=== PATIENT | male | born 1995 | race Caucasian/White ===

== ENCOUNTER 2024-08-06 12:37 | Emergency (ER) | payer SELFPAY ==
[2024-08-06 13:05] VITALS: BP 127/85; PULSE 106; RESP 17; TEMP 36.7; O2SAT 97; BMI 24.0
--- NOTE | 2024-08-06 13:14 | PD.EDRECHK ---
ED Recheck Abnl Lab Rx-RME/HPI General Chief Complaint: Recheck/Abnormal Lab/Rx Stated Complaint: RUNNING OUT OF PSYCH MEDS Time Seen by Provider: 08/06/24 12:53 Arrival date/time: 08/06/24 12:37 RME / HPI RME / HPI narrative: 28-year-old male patient who just moved to [place], came in for evaluation regarding asking refill of psych medication. Patient told me that he already have an appointment with psychiatrist middle of August. Is getting so low with all his psych medication. Currently denies any complaints Related Data Previous Rx's ?Medication ?Instructions ?Recorded atomoxetine 80 mg capsule 80 mg PO QDAY #45 caps 08/06/24 buspirone 15 mg tablet 15 mg PO BID #90 tabs 08/06/24 oxcarbazepine 300 mg tablet 300 mg PO BID #90 tabs 08/06/24 quetiapine 50 mg tablet,extended 50 mg PO QPM #45 tabs 08/06/24 release 24 hr (Seroquel XR) Allergies Allergy/AdvReac Type Severity Reaction Status Date / Time No Known Allergies Allergy Verified 08/06/24 12:44 Review of Systems Review of Systems Narrative Review of Systems: Review of system reviewed and within normal limits except mentioned in HPI ED Exam Narrative Physical exam: VITAL SIGNS: Reviewed. GENERAL APPEARANCE: Alert and interactive, follows commands, no acute distress, HEAD AND FACE: Non-traumatic. ENT: PERRL, pink conjunctivitis, eyelid no trauma, Mucous membrane moist. NECK: Supple, nontender, no nuchal rigidity. CHEST: No tenderness, no crepitus, no paradoxical movement, no retractions. LUNGS: Clear, well ventilated, symmetric, no rales, no wheezing, no ronchi, no stridor, good breath sounds bilaterally. HEART: Regular rate, regular rhythm, no murmur, no gallops. ABDOMEN: Soft, positive bowel sounds, nondistended, no guarding, nontender, no rebound, no masses, RECTAL: Deferred. GENITAL: Deferred. NEUROLOGICAL: Gross motor function intact sensory function intact, Appropriate for age. MUSCULOSKELETAL: low back nontender, full range of motion. EXTREMITIES: Nontender, full range of motion. SKIN: Color pink, dry, no rash, no lacerations, no abrasions, no contusions. LYMPHATICS: Deferred. Course Quality Measures none Vital Signs Vital signs: Vital Signs Temperature 98.1 F 08/06/24 13:05 Pulse Rate 106 H 08/06/24 13:05 Respiratory Rate 17 08/06/24 13:05 Blood Pressure 127/85 H 08/06/24 13:05 Pulse Oximetry (%) 97 08/06/24 13:05 Oxygen Delivery Method Room Air 08/06/24 13:05 Recheck / Abnormal Lab / Rx MDM Narrative MDM Narrative:: I gave refill of his medications since patient is new to this place and still awaiting to be seen by psychiatrist next month. Patient data External records reviewed:: None Clinical information provided by:: patient and family Social determinants that could affect healthcare access:: none Patient has the following chronic illnesses:: Mental disorder, history of seizure disorder How is presenting disease/condition affected by chronic disease/condition?: uneffected by Evaluation data The following diagnostics were reviewed and interpreted by me:: other (specify) (None) Lab and/or radiology exams considered but not ordered:: None Interpretation Summary: None Medications / Prescriptions Medications or Prescriptions considered but not ordered:: None Medication administrations:: None Consultations Consultation(s) initiated? (list below): No Diagnosis Recheck Differential Diagnosis: encounter for medication refill Most likely diagnosis given after review of the tests above:: Encounter with repair of medication, history of mental disorder, history of seizure disorder Admission Indicated Admission indicated?: not indicated Admission Request Was there a request for admission?: No Disposition Plan Disposition Plan: Discharge Discharge Attestation Discharge Attestation: The patient and all family members were given an opportunity to ask questions and understood the discharge instructions. Discharge instructions specifically effects, indications for sooner follow up or return to the emergency department, and the expected course of current diagnosis. Patient condition: Stable Discharge Plan Plan Patient Disposition: HOME (Self Care) Disposition Comment: Stable Prescriptions/Referrals Prescriptions/Med Rec: New quetiapine [Seroquel XR] 50 mg tablet extended release 24 hr 50 mg PO QPM Qty: 45 0RF buspirone 15 mg tablet 15 mg PO BID Qty: 90 0RF oxcarbazepine 300 mg tablet 300 mg PO BID Qty: 90 0RF atomoxetine 80 mg capsule 80 mg PO QDAY Qty: 45 0RF Problem List Clinical Impression: Encounter for medication refill Patient/Caregiver Discharge Instructions Discharge Activity: activity as tolerated Education Materials: ED Seizure, Recurrent (Adult) Additional Instructions: Thank you for the opportunity for serving you today. You are stable for discharged . You are advised to: Follow-up with your PCP in 1 to 2 days Return to ED for worsening of symptoms Increase oral fluids Take medication as prescribed Print Language: Bulgarian Stand Alone Forms: Syeda Award Info., Patient Portal Info Letter PA/RIGHT OF WAY APPRAISER Supervising Physician PA/RIGHT OF WAY APPRAISER Supervising Physician: md molly
== END 2024-08-06 13:31 | disposition home or self-care (01) ==
LOC: SERX 13:38
PROVIDERS: Emergency Provider Emergency Medicine
DX: Z76.0 Encounter for issue of repeat prescription (principal)
CPT/HCPCS: 99281

== ENCOUNTER 2024-08-29 09:43 | Emergency (ER) | payer MEDICAID, SELFPAY ==
[2024-08-29 09:44] VITALS: BP 150/84; PULSE 100; RESP 18; TEMP 37.1; O2SAT 98; BMI 22.4
--- NOTE | 2024-08-29 10:04 | XR_ITS ---
Examination: CT abdomen and pelvis without contrast. Coronal 3-D reconstructions. Sagittal 2-D reconstructions. Date and time of exam:August 29, 2024 1103 hours INDICATIONS: Onset left lower abdominal pain beginning one week ago CTDI: vol (mGy): 8.82 DLP: (mGycm): 526 Technique: Axial images of the abdomen have been obtained, 3 mm slice thickness Intravenous contrast material has not been administered. Low dose protocols were performed. One or more of the following dose reduction techniques were used; automated exposure control, adjustment of the mA and/or KV according to patient size, use of iterative reconstruction technique. Findings: No focal liver lesion AP splenic dimension 14 cm No gallstones Patient motion, however degrades image quality No pancreatic or adrenal mass No renal or ureteral calculi, no hydronephrosis Aorta normal size, minute 1 to 2 mm periaortic pericaval lymph nodes No pericecal inflammatory change No bowel obstruction or diverticulitis Moderate stool in the rectum No prostatomegaly Urinary bladder intact Intact osseous structures IMPRESSION: Mild splenomegaly No renal or ureteral calculi, no hydronephrosis No CT findings of appendicitis bowel obstruction or diverticulitis Minute, 1 to 2 mm periaortic pericaval lymph nodes, clinical correlation advised and consider 6 month follow-up CT scan abdomen pelvis post intravenous contrast
--- NOTE | 2024-08-29 10:05 | PD.EDRME ---
Rapid Medical Screening Exam RME Arrival date/time: 08/29/24 09:43 28-year-old male presents emergency department complains of left flank pain Chief Complaint: Urogenital-Male Vital signs: Vital Signs Temperature 98.7 F 08/29/24 09:44 Pulse Rate 100 08/29/24 09:44 Respiratory Rate 18 08/29/24 09:44 Blood Pressure 150/84 H 08/29/24 09:44 Pulse Oximetry (%) 98 08/29/24 09:44 Oxygen Delivery Method Room Air 08/29/24 09:44
[2024-08-29 10:35] LABS: Collection Type, Urine Clean Catch
[2024-08-29 10:41] LABS: Basophils # (Auto) 0.1 Thou/mm3 (0.0-0.2); Basophils % (Auto) 1 % (0-2.5); Eosinophils # (Auto) 0.1 Thou/mm3 (0.0-0.5); Eosinophils % (Auto) 2 % (0-10); Hematocrit 43.7 % (41.0-53.0); Hemoglobin 15.4 g/dL (13.5-16.0); Immature Granulocytes % (Auto) 1 % (0-0); Immature Granulocytes Auto 0.03 Thou/mm3 (0.00-0.00); Lymphocytes # (Auto) 2.7 Thou/mm3 (1.0-4.8); Lymphocytes % (Auto) 42 % (10-50); Mean Corpuscular HGB Conc 35.2 g/dl (31.0-37.0); Mean Corpuscular Hemoglobin 29.3 pg (25.0-35.0); Mean Corpuscular Volume 83 fL (80-100); Monocytes # (Auto) 0.5 Thou/mm3 (0.0-0.8); Monocytes % (Auto) 9 % (0-12); Neutrophils # (Auto) 2.9 Thou/mm3 (1.8-7.7); Neutrophils % (Auto) 46 % (37-80); Nucleated Red Blood Cell % 0 /100 WBC (0); Platelet Count 266 Thou/mm3 (140-440); RDW Standard Deviation 38.3 fL (35.1-43.9); Red Blood Count 5.26 Miln/mm3 (4.50-5.90); White Blood Count 6.4 Thou/mm3 (3.8-10.6)
[2024-08-29 10:48] LABS: Amorphous Crystals,Urine Present (Absent); Amphetamine/Methamp Scrn,U Negative (Negative); Barbiturate Screen,Urine Negative (Negative); Benzodiazepines Screen,Urine Negative (Negative); Benzoylecgonine Screen, Ur Negative (Negative); Bilirubin,Urine Negative (Negative); Blood,Urine Negative (Negative); Clarity,Urine Turbid (Clear/Hazy); Color,Urine Lt-Yellow (Lt Yel-Yel); Culture Indicated,Urine Not Indicated; Fentanyl Screen,Urine Negative (Negative); Glucose, Urine Negative (Negative); Ketones,Urine Negative (Negative); Leukocyte Esterase,Urine Negative (Negative); Nitrite,Urine Negative (Negative); Opiate Screen,Urine Negative (Negative); Protein,Urine Negative (Neg - Trace); RBC,Urine 2 /hpf (0-3); Specific Gravity,Urine 1.023 (1.001-1.035); Squamous Epithelial Cell,Urine < 1 /hpf (0-5); THC Screen,Urine Negative (Negative); Urobilinogen,Urine Negative mg/dL (0.0-1.0); WBC,Urine 1 /hpf (0-5)
[2024-08-29 10:55] LABS: Alanine Aminotransferase 22 U/L (10-49); Albumin, Serum 4.7 gm/dL (3.5-5.0); Albumin/Globulin Ratio 1.9 (1.2-2.2); Alkaline Phosphatase 76 U/L (46-116); Anion Gap 5 (7-16); Aspartate Amino Transferase 19 U/L (0-34); BUN/Creatinine Ratio 13 Ratio (12-20); Bilirubin,Total 0.3 mg/dL (0.3-1.2); Blood Urea Nitrogen 10 mg/dL (9-23); Calcium 10.3 mg/dL (8.3-10.6); Calcium (Corrected) 10.3 mg/dL (8.5-10.1); Carbon Dioxide 32.5 mMol/L (20.0-31.0); Chloride 101 mMol/L (98-107); Creatinine (Component) 0.8 mg/dL (0.6-1.3); Estimated Creatinine Clearance 151.3 mL/min (>60); Globulin 2.5 gm/dL (2.3-3.5); Glucose 95 mg/dL (74-106); Lipase 31 U/L (12-53); Osmolality,Calculated 274 (275-295); Potassium 4.1 mMol/L (3.4-5.1); Sodium 138 mMol/L (136-145); Total Protein 7.2 gm/dL (5.7-8.2); eGFR > 60 See Note
--- NOTE | 2024-08-29 12:04 | XR_ITS ---
Examination: Testicular sonography complete TECHNIQUE: By resolution grayscale sonographic images testes, assessment arterial inflow venous outflow Doppler spectral analysis carful analysis Exam date and time: August 29, 2024 1354 hours INDICATIONS: Onset right testicular and groin pain beginning one week ago. FINDINGS: Right testis 4.7 x 2.5 x 3.1 cm Epididymis 1.5 cm Arterial flow testicle. No testicular mass Left testis 4.9 x 2.3 x 3.2 cm Epididymis 14 mm Arterial flow testicle. No testicular mass Minimal hydrocele IMPRESSION: No testicular torsion or testicular mass Minimal left hydrocele
--- NOTE | 2024-08-29 12:05 | EDNOTE_ITS ---
ED General RME/HPI General Chief complaint: Urogenital-Male Stated complaint: L FLANK PAIN Time Seen by Provider: 08/29/24 12:01 Arrival date/time: 08/29/24 09:43 CC: Left back/flank pain HPI ongoing for the past 3 weeks that radiates down to the scrotum, history of kidney stones is concerned he has the same denies any hematuria dysuria. He is afebrile nontoxic-appearing not in any acute distress no OTC medicines taken for his pain. No other complaints at this time. RME / HPI RME / HPI narrative: 08/29/24 09:43 28-year-old male presents emergency department complains of left flank pain Related Data Previous Rx's ?Medication ?Instructions ?Recorded atomoxetine 80 mg capsule 80 mg PO QDAY #45 caps 08/06/24 buspirone 15 mg tablet 15 mg PO BID #90 tabs 08/06/24 oxcarbazepine 300 mg tablet 300 mg PO BID #90 tabs 08/06/24 quetiapine 50 mg tablet,extended 50 mg PO QPM #45 tabs 08/06/24 release 24 hr (Seroquel XR) Allergies Allergy/AdvReac Type Severity Reaction Status Date / Time No Known Allergies Allergy Verified 08/29/24 09:47 Review of Systems Review of Systems Narrative Review of Systems: GEN: No fever, no chills, no weight loss EYES: No discharge, no visual changes, no pain HEENT: No ear pain, no congestion, no sore throat PULM: No shortness of breath, no cough, no congestion CV: No chest pain, no dyspnea on exertion, no palpitations GI: No nausea, no vomiting, no diarrhea, + pain, no constipation : No frequency, no urgency, no dysuria, + testicular pain MUSC/SKEL: No joint pain, no back pain SKIN: No rash PSYCH: No hallucinations, no depression HEME/LYMPH: No easy bleeding or bruising tendencies NEURO: No weakness, no headache Past Medical History Social History SMOKING STATUS: Current some day smoker ED Exam Narrative Physical exam: [General: Not in any acute distress Head normocephalic HEENT: Eyes pupils are PERRLA EOMs are intact all other subsystems of HEENT are within acceptable limits Neck is supple nontender Chest equal chest rise nontender to palpation Respiratory: Clear to auscultation no wheezes crackles or rubs CV: Rate rhythm is regular no murmurs rubs or clicks Abdomen is soft nontender no masses positive bowel sounds all 4 quadrants : Genitalia: The penis is uncircumcised no swelling edema mass skin retracted and no blood or bleeding from the meatus. Scrotum, nonedematous nonerythematous mild tenderness to manipulation of the right testicle. Back: Left CVA tenderness no right CVA tenderness, no spinous process tenderness from cervical spine thoracic and lumbar spine Skin: Intact no petechiae rash induration ulceration or crepitus Extremities: Moving all extremity against resistance cap refill less than 2 seconds neurosensory intact Neuro: Awake alert oriented x3 Glascow coma 15 no focal deficits] Course Quality Measures none Orders Category Date Time Status CT abdomen pelvis wo con Stat Exams 08/29/24 10:04 Completed US scrotum Stat Exams 08/29/24 12:04 Completed CBC Stat Lab 08/29/24 10:25 Completed Comprehensive Metabolic Panel Stat Lab 08/29/24 10:25 Completed Drug Screen,Urine Stat Lab 08/29/24 10:28 Completed Lipase Stat Lab 08/29/24 10:25 Completed UA, C/S IF [Urinalysis, C/S if Indicated] Stat Lab 08/29/24 10:28 Completed Vital Signs Vital signs: Vital Signs Temperature 98.7 F 08/29/24 09:44 Pulse Rate 100 08/29/24 09:44 Respiratory Rate 18 08/29/24 09:44 Blood Pressure 150/84 H 08/29/24 09:44 Pulse Oximetry (%) 98 08/29/24 09:44 Oxygen Delivery Method Room Air 08/29/24 09:44 [facility] Patient data External records reviewed:: [facility] previous records Clinical information provided by:: patient Social determinants that could affect healthcare access:: none Patient has the following chronic illnesses:: None How is presenting disease/condition affected by chronic disease/condition?: u neffected by Evaluation data The following diagnostics were reviewed and interpreted by me:: lab results and radiology exam(s) Lab and/or radiology exams considered but not ordered:: CBC shows no acute leukocytosis anemia thrombocytopenia CMP shows no acute electrolyte imbalances renal impairment transaminitis or T. bili await elevation Urine is negative for UTI UDS is negative CT of the abdomen pelvis shows no acute finding requires emergent or immediate intervention as interpreted by me read by radiology. Ultrasound shows a left hydrocele. Interpretation Summary: Left hydrocele Medications Medications considered but not ordered:: None Medication administrations:: None Consultations Consultation(s) initiated? (list below): No Diagnosis Differential Diagnosis ED Complaint MDM: Urolithiasis hydroureter hydronephrosis Most likely diagnosis given after review of the tests above:: Left scrotal hydrocele Admission Indicated Admission indicated?: not indicated Explain why admission is indicated or not indicated:: Stable for outpatient follow-up Admission Request Was there a request for admission?: No Disposition Plan Disposition Plan: Discharge Discharge Attestation Discharge Attestation: The patient and all family members were given an opportunity to ask questions and understood the discharge instructions. Discharge instructions specifically effects, indications for sooner follow up or return to the emergency department, and the expected course of current diagnosis. Patient condition: Stable Medical Decision Making Differential Diagnosis Differential Diagnosis: Urolithiasis hydroureter hydronephrosis Lab Data 08/29/24 10:25 08/29/24 10:25 Labs: Lab Results 08/29/24 08/29/24 Range/Units 10:25 10:28 WBC 6.4 (3.8-10.6) Thou/mm3 RBC 5.26 (4.50-5.90) Miln/mm3 Hgb 15.4 (13.5-16.0) g/dL Hct 43.7 (41.0-53.0) % MCV 83 (80-100) fL MCH 29.3 (25.0-35.0) pg MCHC 35.2 (31.0-37.0) g/dl RDW Std Deviation 38.3 (35.1-43.9) fL Plt Count 266 (140-440) Thou/mm3 Neut % (Auto) 46 (37-80) % Lymph % (Auto) 42 (10-50) % [place] % (Auto) 9 (0-12) % Eos % (Auto) 2 (0-10) % Baso % (Auto) 1 (0-2.5) % Neut # (Auto) 2.9 (1.8-7.7) Thou/mm3 Lymph # (Auto) 2.7 (1.0-4.8) Thou/mm3 [place] # (Auto) 0.5 (0.0-0.8) Thou/mm3 Eos # (Auto) 0.1 (0.0-0.5) Thou/mm3 Baso # (Auto) 0.1 (0.0-0.2) Thou/mm3 Immature Gran # (Auto) 0.03 H (0.00-0.00) Thou/mm3 Absolute Nucleated RBC 0.00 (0.00-0.00) Thou/mm3 Immature Gran % 1 H (0-0) % Nucleated RBC % 0 (0) /100 WBC Sodium 138 (136-145) mMol/L Potassium 4.1 (3.4-5.1) mMol/L Chloride 101 (98-107) mMol/L Carbon Dioxide 32.5 H (20.0-31.0) mMol/L Anion Gap 5 L (7-16) BUN 10 (9-23) mg/dL Creatinine 0.8 (0.6-1.3) mg/dL Estim Creat Clear Calc 151.3 (>60) mL/min eGFR > 60 (60 - ) See Note BUN/Creatinine Ratio 13 (12-20) Ratio Glucose 95 (74-106) mg/dL Calculated Osmolality 274 L (275-295) Calcium 10.3 (8.3-10.6) mg/dL Corrected Calcium 10.3 H (8.5-10.1) mg/dL Total Bilirubin 0.3 (0.3-1.2) mg/dL AST 19 (0-34) U/L ALT 22 (10-49) U/L Alkaline Phosphatase 76 (46-116) U/L Total Protein 7.2 (5.7-8.2) gm/dL Albumin 4.7 (3.5-5.0) gm/dL Globulin 2.5 (2.3-3.5) gm/dL Albumin/Globulin Ratio 1.9 (1.2-2.2) Lipase 31 (12-53) U/L Ur Collection Type Clean Catch Urine Color Lt-Yellow (Lt Yel-Yel) Urine Clarity Turbid A (Clear/Hazy) Urine pH 7.0 (5.0-7.0) Ur Specific [place] 1.023 (1.001-1.035) Urine Protein Negative (Neg - Trace) Urine Glucose (UA) Negative (Negative) Urine Ketones Negative (Negative) Urine Blood Negative (Negative) Urine Nitrite Negative (Negative) Urine Bilirubin Negative (Negative) Urine Urobilinogen (Auto) Negative (0.0-1.0) mg/dL Ur Leukocyte Esterase Negative (Negative) Urine RBC 2 (0-3) /hpf Urine WBC 1 (0-5) /hpf Ur Squamous Epith Cells < 1 (0-5) /hpf Amorphous Crystals Present A (Absent) Urine Bacteria None (None) Ur Culture Indicated? Not Indicated Urine Opiates Screen Negative (Negative) Urine Fentanyl Screen Negative (Negative) Ur Barbiturates Screen Negative (Negative) U Amphetamin/Meth Scrn Negative (Negative) U Benzodiazepines Scrn Negative (Negative) U Cocaine Metab Screen Negative (Negative) U Marijuana (THC) Screen Negative (Negative) Discharge Plan Plan Patient Disposition: HOME (Self Care) Patient condition on transfer: Stable Prescriptions/Referrals Prescriptions/Med Rec: No Action quetiapine [Seroquel XR] 50 mg tablet extended release 24 hr 50 mg PO QPM Qty: 45 0RF buspirone 15 mg tablet 15 mg PO BID Qty: 90 0RF oxcarbazepine 300 mg tablet 300 mg PO BID Qty: 90 0RF atomoxetine 80 mg capsule 80 mg PO QDAY Qty: 45 0RF Referrals: No Primary/Family,Physician [Primary Care Provider] - In 1 week Problem List Clinical Impression: Hydrocele in adult Patient/Caregiver Discharge Instructions Education Materials: ED Hydrocele Non-Communicating Type Additional Instructions: Elevate the scrotum while sleeping follow-up with your primary care provider. Print Language: Hungarian Stand Alone Forms: Syeda Award Info., Patient Portal Info Letter, Work/School Release PA/SURGICAL CLINICAL REVIEWER Supervising Physician PA/SURGICAL CLINICAL REVIEWER Supervising Physician: Michael Garcia ENP
[2024-08-29 12:49] VITALS: BP 127/83; PULSE 98; RESP 16; TEMP 37.1; O2SAT 100
[2024-08-29 14:55] VITALS: BP 124/84; PULSE 99; RESP 16; O2SAT 99
== END 2024-08-29 14:55 | disposition home or self-care (01) ==
PROVIDERS: Nurse Practitioner Primary Care; Emergency Provider Emergency Medicine
DX: N43.3 Hydrocele, unspecified (principal); R10.32 Left lower quadrant pain
CPT/HCPCS: 36415; 74176; 76870; 80053; 80307; 81001; 83690; 85025; 99284

== ENCOUNTER 2024-09-14 12:42 | Emergency (ER) | payer MEDICAID, SELFPAY ==
[2024-09-14 12:51] VITALS: BP 145/92; PULSE 109; RESP 18; TEMP 36.8; O2SAT 99; BMI 26.9
--- NOTE | 2024-09-14 13:02 | EDNOTE_ITS ---
<Statement entered by Chelsi Noland MD - 09/15/24 07:39> As co-signing physician, I was present and available for consult prn. I concur with the plan and care as documented by the midlevel provider. ED Psych RME/HPI General Chief Complaint: Recheck/Abnormal Lab/Rx Stated Complaint: RX REFILL Time Seen by Provider: 09/14/24 12:44 Arrival date/time: 09/14/24 12:42 28-year-old male with psychiatric disorder presents emergency department today requesting medication refill patient reports he has a follow-up appointment on the Limitations: no limitations Related Data Previous Rx's ?Medication ?Instructions ?Recorded atomoxetine 80 mg capsule 80 mg PO QDAY #45 caps 08/06/24 buspirone 15 mg tablet 15 mg PO BID #90 tabs 08/06/24 oxcarbazepine 300 mg tablet 300 mg PO BID #90 tabs 08/06/24 quetiapine 50 mg tablet,extended 50 mg PO QPM #45 tabs 08/06/24 release 24 hr (Seroquel XR) atomoxetine 80 mg capsule 80 mg PO QDAY 30 days #30 caps 09/14/24 buspirone 15 mg tablet 15 mg PO BID 30 days #60 tabs 09/14/24 oxcarbazepine 300 mg tablet 300 mg PO BID 30 days #60 tabs 09/14/24 quetiapine 50 mg tablet,extended 50 mg PO QPM 30 days #30 tabs 09/14/24 release 24 hr (Seroquel XR) Allergies Allergy/AdvReac Type Severity Reaction Status Date / Time No Known Allergies Allergy Verified 09/14/24 12:43 Review of Systems Review of Systems Systems Reviewed: All systems reviewed, normal except as documented Constitutional Constitutional: Reports system reviewed and no additional complaints, except as documented, Denies fever(s) and Denies headache(s) Eyes Eyes: Reports system reviewed and no additional complaints, except as documented and Denies blurry vision ENT Ears, Nose, Mouth, and Throat: Reports system reviewed and no additional complaints, except as documented, Denies headache(s), Denies nasal congestion and Denies nasal discharge Cardiovascular Cardiovascular: Reports system reviewed and no additional complaints, except as documented, Denies chest pain and Denies dyspnea Respiratory Respiratory: Reports system reviewed and no additional complaints, except as documented, Denies chest congestion, Denies cough and Denies dyspnea Gastrointestinal Gastrointestinal: Reports system reviewed and no additional complaints, except as documented and Denies abdominal pain Integumentary/Breasts Skin/Breast: Reports system reviewed and no additional complaints, except as documented and Denies rash Neurologic Neurologic: Reports system reviewed and no additional complaints, except as documented, Reports as per HPI and Denies headache(s) Psychiatric Psychiatric: Reports system reviewed and no additional complaints, except as documented, Denies homicidal ideation and Denies suicidal ideation Past Medical History Past Medical History CARDIAC: Negative Congestive Heart Failure RESPIRATORY: Negative Chronic Obstructive Pulmonary Disease (COPD) GENITOURINARY: Negative Renal Disease ENDOCRINE: Negative Diabetes Mellitus Type 1 or Diabetes Mellitus Type 2 PSYCHO/SOCIAL: Positive Schizophrenia and Anxiety Social History SMOKING STATUS: Light (< 1 pack/day) ED Exam General Limitations: Present no limitations General appearance: Present alert and in no apparent distress Head Head exam: Present atraumatic, normocephalic and normal inspection Eye Eye exam: Present normal appearance, PERRL and EOMI; Absent conjunctival injection ENT ENT exam: Present normal exam, normal oropharynx and mucous membranes moist Neck Neck exam: Present normal inspection, full ROM and trachea midline Chest Chest inspection: Present normal inspection and symmetric chest wall rise Respiratory Respiratory exam: Present normal lung sounds bilaterally; Absent respiratory distress Cardiovascular Cardiovascular exam: Present regular rate, normal rhythm and normal heart sounds Abdominal Exam Abdominal exam: Present soft and normal bowel sounds; Absent distention, tenderness, guarding, rebound or rigidity Extremities Exam Extremities exam: Present normal inspection and full ROM Back Exam Back exam: Present normal inspection and full ROM Neurological Exam Neurological exam: Present alert, oriented X3, CN II-XII intact, normal gait and reflexes normal; Absent motor sensory deficit Psychiatric Psychiatric exam: Present normal affect and normal mood Skin Skin exam: Present warm, dry, intact and normal color; Absent rash Course Quality Measures none Vital Signs Vital signs: Vital Signs Temperature 98.3 F 09/14/24 12:51 Pulse Rate 109 H 09/14/24 12:51 Respiratory Rate 18 09/14/24 12:51 Blood Pressure 145/92 H 09/14/24 12:51 Pulse Oximetry (%) 99 09/14/24 12:51 Oxygen Delivery Method Room Air 09/14/24 12:51 O2 saturation 99% room air WNL Psych MDM Narrative MDM Narrative:: 28-year-old male with psychiatric disorder presents emergency department today requesting medication refill patient reports he has a follow-up appointment on the On exam patient well-appearing patient is not appear toxic Patient reports no suicidal or homicidal ideation patient is acting appropriately Patient medication refilled per his request with Patient discharged home in no distress to follow-up with primary care doctor in the next 24 to 48 hours and for any worsening symptoms to return to the ER immediately Patient data External records reviewed:: [facility] previous records Clinical information provided by:: patient Social determinants that could affect healthcare access:: mental health Patient has the following chronic illnesses:: Psychiatric history How is presenting disease/condition affected by chronic disease/condition?: caused by Evaluation data The following diagnostics were reviewed and interpreted by me:: other (specify) Lab and/or radiology exams considered but not ordered:: Considered and not ordered Interpretation Summary: N/A Medications / Prescriptions Medications or Prescriptions considered but not ordered:: Given Rx Medication administrations:: Given Rx Consultations Consultation(s) initiated? (list below): No Diagnosis Psych Differential Diagnosis: acute psychosis and chronic schizophrenia Most likely diagnosis given after review of the tests above:: Psychiatric disorder Admission Indicated Admission indicated?: not indicated Admission Request Was there a request for admission?: No Disposition Plan Disposition Plan: Discharge Discharge Attestation Discharge Attestation: The patient and all family members were given an opportunity to ask questions and understood the discharge instructions. Discharge instructions specifically effects, indications for sooner follow up or return to the emergency department, and the expected course of current diagnosis. Patient condition: Stable Discharge Plan Plan Patient Disposition: HOME (Self Care) Disposition Comment: Stable Prescriptions/Referrals Prescriptions/Med Rec: New atomoxetine 80 mg capsule 80 mg PO QDAY 30 Days Qty: 30 0RF buspirone 15 mg tablet 15 mg PO BID 30 Days Qty: 60 0RF oxcarbazepine 300 mg tablet 300 mg PO BID 30 Days Qty: 60 0RF quetiapine [Seroquel XR] 50 mg tablet extended release 24 hr 50 mg PO QPM 30 Days Qty: 30 0RF Continued quetiapine [Seroquel XR] 50 mg tablet extended release 24 hr 50 mg PO QPM Qty: 45 0RF buspirone 15 mg tablet 15 mg PO BID Qty: 90 0RF oxcarbazepine 300 mg tablet 300 mg PO BID Qty: 90 0RF atomoxetine 80 mg capsule 80 mg PO QDAY Qty: 45 0RF Problem List Clinical Impression: Encounter for medication refill, Psychiatric disorder Patient/Caregiver Discharge Instructions Education Materials: [facility] Additional Instructions: Please keep your appointment on the with your mental health practitioner for worsening symptoms return immediately Print Language: Lebanese Stand Alone Forms: [employer] Award Info., Patient Portal Info Letter PA/PLUGGING MACHINE OPERATOR Supervising Physician PA/PLUGGING MACHINE OPERATOR Supervising Physician: Dr. NOLAND
== END 2024-09-14 13:25 | disposition home or self-care (01) ==
PROVIDERS: Emergency Provider Emergency Medicine
DX: Z76.0 Encounter for issue of repeat prescription (principal); F99 Mental disorder, not otherwise specified
CPT/HCPCS: 99281